=== PATIENT | female | born 1960 | race Caucasian/White ===

== ENCOUNTER 2020-08-06 08:27 | Outpatient (CLI) | payer OTHER ==
--- NOTE | 2020-08-19 07:08 | Mammography Report ---
BILATERAL DIGITAL SCREENING MAMMOGRAM 3D/2D: 08/06/2020 CLINICAL: Routine screening. Comparison is made to exams dated: 05/25/2016 mammogram, 05/08/2015 mammogram, 03/10/2013 mammogram, mammogram, and 01/07/2011 mammogram - [facility]. The tissue of both breasts is heterogeneously dense. This may lower the sensitivity of mammography. No significant masses, calcifications, or other findings are seen in either breast. There has been no significant interval change. IMPRESSION: NEGATIVE There is no mammographic evidence of malignancy. A 1 year screening mammogram is recommended. This exam was interpreted at Station ID: [id number]. NOTE: For mammograms, a report in lay terms will be sent to the patient. Approximately 15% of breast malignancies will not be visualized mammographically. In the management of a palpable breast mass, a negative mammogram must not discourage biopsy of a clinically suspicious lesion. Electronically Signed By: Mehran Walters M.D. aty/penrad:08/16/2020 13:41:22 ACR BI-RADS Category 1: Negative 3341F PARENCHYMAL PATTERN: (D) - The breast(s) demonstrate(s) heterogeneously dense fibroglandular renzo sahni. BI-RADS CATEGORY: (1) - 1 RECOMMENDATION: (ANNUAL) - Recommend routine annual screening mammography. [id number] 1 year screening LATERALITY: (B)
== END 2020-08-06 08:28 | disposition home or self-care (01) ==
LOC: DI 08:27
DX: Z12.31 Encounter for screening mammogram for malignant neoplasm of breast (principal)